=== PATIENT | male | born 1950 | race Caucasian/White ===

== ENCOUNTER → 2018-07-24 | Outpatient (CLI) | payer BC ==
[~2018-07-24] MED LIST: APIX5TAB PO; LISI10TA2 PO; MELO15TA23 PO; OMEP40CA5 PO; SILD50TA PO; TEST200V4 IM
== END | disposition home or self-care (01) ==
LOC: PCVCCLINIC 11:13
PROVIDERS: ATTEND Internal Medicine
DX: I48.1 Persistent atrial fibrillation (principal); R06.09 Other forms of dyspnea; I10 Essential (primary) hypertension; E78.5 Hyperlipidemia, unspecified; N52.1 Erectile dysfunction due to diseases classified elsewhere; F32.0 Major depressive disorder, single episode, mild; K21.9 Gastro-esophageal reflux disease without esophagitis; M19.90 Unspecified osteoarthritis, unspecified site; Z87.891 Personal history of nicotine dependence
CPT/HCPCS: 36415; 80061; 93005; G0463

== ENCOUNTER → 2018-08-07 | Outpatient (CLI) | payer BC ==
[~2018-08-07] MED LIST changes: +REGADENOSON 0.4 MG/5 ML DISP.SYRIN. IV ONE
--- NOTE | 2018-08-08 09:46 | PCVCIMAG ---
APPROVED REPORT Study performed: 08/07/2018 09:40:58 EXAM: Comprehensive 2D, Doppler, and color-flow Echocardiogram Patient Location: Echo lab Status: routine BSA: 2.38 HR: 65 bpmBP: 140/88 mmHg Rhythm: NSR Other Information Study Quality: Adequate Risk Factors: Cardiac Risk Factors: Hyperlipidemia, HTN Indications Atrial Fibrillation Dyspnea on Exertion 2D Dimensions IVSd: 14.06 (7-11mm)LVOT Diam: 21.00 (18-24mm) LVDd: 42.38 mm PWd: 11.99 (7-11mm)Ascending Ao: 29.12 (22-36mm) LVDs: 30.99 (25-40mm) Left Atrium: 41.57 (27-40mm) Aortic Root: 27.96 mm LV Single Plane 4CH: 47.95 % LV Single Plane 2CH: 59.88 % Biplane EF: 56.6 % Volumes Left Atrial Volume (Systole) Single Plane 4CH: 68.87 mLSingle Plane 2CH: 62.78 mL LA ESV Index: 29.00 mL/m2 Aortic Valve AoV Peak Edwardo.: 1.40 m/s AO Peak Gr.: 7.81 mmHgLVOT Max P.33 mmHg LVOT Max V: 0.91 m/s CELIA Vmax: 2.34 cm2 Mitral Valve E/A Ratio: 1.0 MV Decel. Time: 320.93 ms MV E Max Edwardo.: 0.79 m/s MV A Edwardo.: 0.82 m/s IVRT: 58.82 ms TDI E/Lateral E': 13.17E/Medial E': 8.78 Medial E' Edwardo.: 0.09 m/s Lateral E' Edwardo.: 0.06 m/s Pulmonary Valve PV Peak Edwardo.: 1.05 m/sPV Peak Gr.: 4.38 mmHg Pulmonary Vein P Vein S: 0.68 m/sP Vein A: 0.28 m/s P Vein D: 0.41 m/sP Vein A Dur.: 100.3 msec P Vein S/D Ratio: 1.66 Tricuspid Valve TR Peak Edwardo.: 2.83 m/sRAP Estimate: 7.00 mmHg TR Peak Gr.: 32.08 mmHg PA Pressure: 39.00 mmHg Left Ventricle The left ventricle is normal size. There is normal LV segmental wall motion. Mild to moderate concentric left ventricular hypertrophy. Left ventricular systolic function is normal. The left ventricular ejection fraction is within the normal range. LVEF is 50-55%. Grade II - pseudonormal filling dynamics. Right Ventricle Right ventricle is dilated. The right ventricular systolic function is normal. Moderator band is seen in the right ventricle. Atria The left atrium size is normal. The right atrium size is normal. Aortic Valve The aortic valve is normal in structure. No aortic regurgitation is present. There is no aortic valvular stenosis. Mitral Valve There is mitral annular calcification. There is no mitral valve regurgitation noted. No evidence of mitral valve stenosis. Tricuspid Valve The tricuspid valve is normal in structure. Trace tricuspid regurgitation. Pulmonary artery pressure is 39 mmHg. Pulmonic Valve The pulmonary valve is normal in structure. Trace pulmonic regurgitation. Great Vessels The aortic root is normal in size. IVC is normal in size and collapses >50% with inspiration. Pericardium There is no pericardial effusion. <Conclusion> The left ventricle is normal size. LVEF is 50-55%. Right ventricle is dilated. The right ventricular systolic function is normal. Moderator band is seen in the right ventricle. The aortic valve is normal in structure. There is mitral annular calcification. The tricuspid valve is normal in structure. Trace tricuspid regurgitation. Pulmonary artery pressure is 39 mmHg. The pulmonary valve is normal in structure. Trace pulmonic regurgitation. There is no pericardial effusion.
--- NOTE | 2018-08-12 16:18 | PCVCIMAG ---
APPROVED REPORT Imaging Protocol: Rest Tc-99m/Stress Tc-99m 1 day Study performed: 08/07/2018 10:21:01 Indication: Atrial Fibrillation, Dyspnea Patient Location: Out-Patient Stress Nurse: Anitra Og RN, Anai Vargas RN [place] Tech:Eveline Deandre [facility] Ht: 6 ft 3 in Wt: 241 lbs BSA: 2.38 m2 HR: 71 bpm BP: 140/84 mmHg BMI: 30.11 Rhythm: Normal Sinus Rhythm, Incomplete RBBB Medical History Medical History: Hyperlipidemia, HTN Medications: Eliquis, Lisinopril, Prilosec Allergies: Tamsulosin Cardiac Risk Factors: Age Pretest Chest Pain Characteristics: No chest pain Exercise History: Physically active Resting Data Rest SPECT myocardial perfusion imaging was performed in supine position 45 minutes following the intravenous injection of 11.2 mCi of Tc-99m Sestamibi. Time of rest injection: 0940 Date: 08/07/2018 Administration Route: IV Administration Site: Right AC Pharmacologic Stress Pharmacologic stress test was performed by injecting Regadenoson 0.4 mg IV push over 10-15 seconds immediately followed by the intravenous injection of 34.4 mCi of Tc-99m Sestamibi. Time of stress injection: 1100 Date: 08/07/2018 Administration Route: IV Administration Site: Right AC Gated Stress SPECT was performed 45 minutes after stress injection. The images were gated to evaluate regional wall motion and calculate left ventricular ejection fraction. Stress Test Details Stress Test: Pharmacologic stress testing performed using 0.4 mg of regadenoson per 5 mL given IV over 10 seconds. Reason for pharmacologic stress test: uses a cane, Knee issues. HRMax Heart Rate (APMHR): 150 bpm Resting HR: 71 bpmTarget HR (85% APMHR): 127 bpm Max HR Achieved: 99 bpm % of APMHR: 66 Recovery HR: 78 bpm BP Resting BP: 140/84 mmHg Max BP: 152/88 mmHg Recovery BP: 145/85 mmHg ECG Resting ECG: Normal Sinus Rhythm, Incomplete RBBB Stress ECG: Normal Sinus Rhythm, Incomplete RBBB Arrhythmia: PVC's Recovery ECG: Normal Sinus Rhythm, Incomplete RBBB Clinical Reason for Termination: Completed protocol Stress Symptoms: Chest tightness similar to presenting symptoms Exercise duration: 0 min 55 sec Symptoms resolved with caffeine. Stress ECG Conclusion 1. adequate response to iv lexiscan 2. inadequate heart rate for ecg diagnosis Study Data Post stress, the left ventricular ejection was 56%.. SSS: 3 SRS: 0 SDS: 3 TID = 1.12. Perfusion There is a medium area of moderately reduced uptake in the mid and apical segment of the inferolateral wall which is seen on the stress images andminimally improves on the resting images. This area thickens and moves normally and is most consistent with artifact although ischemia cannot be excluded. Wall Motion There is a small area of hypokinesis in the basal segment of the inferior wall which is seen on the stress images as well as the resting images. Nuclear Conclusion ECG Findings: non-diagnostic Clinical Findings: negative for ischemia Nuclear Findings: equivocal Exercise Capacity: not assessed Left Ventricular Function: normal 1. intermediate risk study based on partial reversible area involving the inferolateral wall 2. post stress LVEF 56% with basilar inferior hypokinesis <Conclusion> 1. adequate response to iv lexiscan 2. inadequate heart rate for ecg diagnosis
== END | disposition home or self-care (01) ==
LOC: PCVCIMAG 09:03
PROVIDERS: ATTEND Internal Medicine
DX: I05.8 Other rheumatic mitral valve diseases (principal); I48.91 Unspecified atrial fibrillation; R06.09 Other forms of dyspnea
CPT/HCPCS: 78452; 93017; 93306; A9500; J2785

== ENCOUNTER → 2018-08-28 | Outpatient (CLI) | payer BC ==
[~2018-08-28] MED LIST changes: -REGADENOSON 0.4 MG/5 ML DISP.SYRIN. IV ONE
== END | disposition home or self-care (01) ==
LOC: PCVCCLINIC 10:00
PROVIDERS: ATTEND Internal Medicine
DX: Z01.812 Encounter for preprocedural laboratory examination (principal); R06.09 Other forms of dyspnea; R94.39 Abnormal result of other cardiovascular function study; I48.1 Persistent atrial fibrillation; I10 Essential (primary) hypertension; K21.9 Gastro-esophageal reflux disease without esophagitis; M19.90 Unspecified osteoarthritis, unspecified site; Z87.891 Personal history of nicotine dependence
CPT/HCPCS: 36415; G0463

== ENCOUNTER 2018-09-03 06:32 | Outpatient (CLI) | payer BC ==
[~2018-09-03] VITALS: Ht 190.5 cm; Wt 108.9 kg
[2018-09-03] VITALS (13 sets, daily range): BP systolic 125–165; BP diastolic 75–99
[2018-09-03] MEDS ORDERED: ASPIRIN CHEWABLE 81 MG TABLET. PO ONE (07:30)
[2018-09-03] MEDS ORDERED: LIDOCAINE 1% Multi-Dose 20 ML VIAL. ONE (07:38)
[2018-09-03] MEDS ORDERED: IODIXANOL 320 MG/ML 100 ML VIAL. ONE (07:38)
[2018-09-03] MEDS ORDERED: SILD50TA PO (07:42)
[2018-09-03] MEDS ORDERED: LISI10TA2 PO (07:42)
[2018-09-03] MEDS ORDERED: TEST200V4 IM (07:42)
[2018-09-03] MEDS ORDERED: MELO15TA23 PO (07:42)
[2018-09-03] MEDS ORDERED: OMEP40CA5 PO (07:42)
[2018-09-03] MEDS ORDERED: APIX5TAB PO (07:42)
[2018-09-03] MEDS ORDERED: ASPIRIN CHEWABLE 81 MG TABLET. ONE (08:17)
[2018-09-03] MEDS ORDERED: fentaNYL PF VIAL 250 MCG/5 ML VIAL ONE (08:29)
[2018-09-03] MEDS ORDERED: MIDAZOLAM HCL/PF 5 MG/5 ML VIAL. ONE (08:29)
[2018-09-03] MEDS ORDERED: LIDOCAINE 1% Multi-Dose 20 ML VIAL. INJ ONE (08:45)
[2018-09-03] MEDS ORDERED: MIDAZOLAM HCL/PF 5 MG/5 ML VIAL. IV ONE (08:45)
[2018-09-03] MEDS ORDERED: IODIXANOL 320 MG/ML 100 ML VIAL. IART ONE (08:45)
[2018-09-03] MEDS ORDERED: LISINOPRIL 10 MG TABLET PO ONE (09:30)
--- NOTE | 2018-09-03 14:15 | NUR ---
Discharge Note: OBDULIO HOLLINGSWORTH Discharge instructions and discharge home medications reviewed with Patient and a copy given. All questions have been answered and understanding verbalized. The following instructions and handouts were given: Moderate sedation, groin site care, Cardiac Angiography, cardiac diet and hypertension. Discontinued lines and drains: left forearm, dressing clean dry intact. Patient discharged to home with significant other via wheelchair to private vehichle. Patient tolerated breakfast and lunch without issues.
--- NOTE | 2018-09-04 10:29 | CARD ---
MR#: [id number] Date of Study: 09/03/2018 Ordering Physician: JULIO CESAR BILLY, Referring Physician: JULIO CESAR BILLY, Tech: RT Faisal (R) APPROVED REPORT Technologist: Renee Nunez RT (R) Nurse: Jolene Nixon RN Procedure(s) performed: FLuoro time:2.5 minutes Dose:53 Gycm2 [id number] cc Moderate sedation: 40 minutes Left heart catheterization, selective left and right coronary angiography, measurement of left ventri cular pressures, and Supervision of conscious sedation HISTORY hypertension: New onset atrial fibrillation with abnormal perfusion scan. [facility] Clinical Frailty Scale [facility] Clinical Frailty Scale: Very Fit Heart Failure Heart Failure: No CASE TECHNIQUE The patient was brought electively into the cardiac catheterization lab. A timeout was performed conf irming the patient's name, date of , procedure, and site of procedure. All necessary parties wer e wearing the appropriate personal protective equipment and radiation monitoring devices. After expla ining the risks and benefits of the procedure, informed consent was obtained.(See nursing notes for m edications administered). The right groin was sterilely prepped and draped. The right femoral groin w as infiltrated with 1% Lidocaine subcutaneous anesthesia. During this case, Fluoroscopy and low osmol ar contrast were used for imaging. A 5 Setswana sheath was inserted into the right femoral artery witho ut difficulty. Coronary angiography was performed using coronary diagnostic catheters. The left coron gwen system was accessed and visualized with a Diagnostic catheter. The right coronary system was acce ssed and visualized with a Diagnostic catheter. The left ventricle was accessed and visualized with a Diagnostic catheter. Left ventricular/Aortic Valve gradient assessed on pullback. Hemostasis was obt ained with manual pressure following sheath removal without any complications. The patient tolerated the procedure well and there were no complications associated with the procedure. Coronary Angiography The patient's coronary anatomy is left dominant. The left main coronary artery is a large size vessel with intimal irregularities and without signific ant stenosis. The left anterior descending artery is a medium size vessel with mild-moderate diffused disease. Ther e is a 600% stenosis . The circumflex artery is a large size vessel with mild diffused disease. The first obtuse marginal br anch is a medium size vessel with mild-moderate diffused disease. There is a 55% stenosis in the prox imal segment. The right coronary artery is a medium size vessel nondominant vessel has been on it regions in its pr oximal course. The vessel is less than 1.5 mm in diameter. the stenosis appeared to be at least 75% a nd eccentric. The vessel then at the acute margin bifurcates into 2 small branches of less than 1 mm in diameter Conclusion 1. Coronary disease with moderate left circumflex and right coronary artery lesions and a small nondo minant RCA 2. Normal hemodynamics Recommendations Cardiac Risk Reduction Program Aggressive Medical Therapy Signed by : Julio Cesar Billy, Electronically Approved : 09/04/2018 10:28:41
== END 2018-09-03 14:00 | disposition home or self-care (01) ==
LOC: CCL 06:32
PROVIDERS: ATTEND Internal Medicine
DX: I25.10 Atherosclerotic heart disease of native coronary artery without angina pectoris (principal); I48.1 Persistent atrial fibrillation; I10 Essential (primary) hypertension
CPT/HCPCS: 93458; 99152; 99153; C1769; C1892; J1644; J2250; Q9967

== ENCOUNTER → 2018-09-29 | Outpatient (CLI) | payer BC ==
[2018-09-03 13:30] VITALS: BP 147/82
== END | disposition home or self-care (01) ==
LOC: PCVCCLINIC 10:00
PROVIDERS: ATTEND Internal Medicine
DX: I48.0 Paroxysmal atrial fibrillation (principal); R06.09 Other forms of dyspnea; I47.1 Supraventricular tachycardia; I25.10 Atherosclerotic heart disease of native coronary artery without angina pectoris; R53.83 Other fatigue; K21.9 Gastro-esophageal reflux disease without esophagitis; M19.90 Unspecified osteoarthritis, unspecified site; Z87.891 Personal history of nicotine dependence
CPT/HCPCS: 93005; G0463

== ENCOUNTER → 2020-03-28 | Outpatient (CLI) | payer BC ==
[2018-09-03 13:30] VITALS: BP 147/82
[~2020-03-28] MED LIST changes: +CRESTOR40 MG PO; +DICL100G54 TP; +DILT180C29 PO; +ESCITALOPRAM OX10 MG PO; +OMEP40CA45 PO; -OMEP40CA5 PO; +TAMS0.4C97 PO; +WARF2TAB96 PO
== END ==
LOC: LAB 11:50
PROVIDERS: ATTEND Internal Medicine
DX: Z01.812 Encounter for preprocedural laboratory examination (principal); R07.9 Chest pain, unspecified; Z20.828 Contact with and (suspected) exposure to other viral communicable diseases
CPT/HCPCS: U0003

== ENCOUNTER 2020-03-30 09:46 | Outpatient (CLI) | payer BC ==
[~2020-03-30] VITALS: Ht 190.5 cm; Wt 104.3 kg
[2020-03-30] VITALS (9 sets, daily range): BP systolic 123–158; BP diastolic 66–96
[~2020-03-30 09:46] MED LIST changes: -CRESTOR40 MG PO; -DICL100G54 TP; -DILT180C29 PO; -ESCITALOPRAM OX10 MG PO; +LISI10TA16 PO; -LISI10TA2 PO; -OMEP40CA45 PO; +OMEP40CA7 PO; -TAMS0.4C97 PO; -WARF2TAB96 PO
[2020-03-30 10:18] LABS: HEMATOCRIT 46.4 % (39.0-53.0); HEMOGLOBIN 15.7 g/dL (13.0-17.5); RED BLOOD COUNT 4.67 x10^6/uL (4.30-5.70); RED CELL DISTRIBUTION WIDTH 13.6 % (11.5-14.5); WHITE BLOOD COUNT 7.1 x10^3/uL (4.0-11.0)
[2020-03-30] MEDS ORDERED: TAMS0.4C97 PO (10:19)
[2020-03-30] MEDS ORDERED: ESCITALOPRAM OX10 MG PO (10:19)
[2020-03-30] MEDS ORDERED: DICL100G54 TP (10:19)
[2020-03-30] MEDS ORDERED: DILT180C29 PO (10:19)
[2020-03-30] MEDS ORDERED: WARF2TAB96 PO (10:19)
[2020-03-30] MEDS ORDERED: CRESTOR40 MG PO (10:19)
[2020-03-30 10:29] LABS: PROTHROMBIN TIME PATIENT 16.6 SEC (11.7-14.0)
[2020-03-30] MEDS ORDERED: ASPIRIN CHEWABLE 81 MG TABLET. PO ONE (10:30)
[2020-03-30 10:34] LABS: CALCIUM 8.9 mg/dL (8.5-10.1); GFR 73.7; POTASSIUM 4.1 mmol/L (3.5-5.1)
--- NOTE | 2020-03-30 10:43 | NUR ---
Patient arrived via [employer]. Patient will received sedation during case. States he plans on taking [employer] home. Notifying . Bob w/ patient and friend, Irma, via phone that she will be able to stay with patient tonight after receiving sedation. Not able to provide transportation, though.
[2020-03-30] MEDS ORDERED: IOHEXOL 300 MG/ML 100ML VIAL. ONE (10:44)
[2020-03-30] MEDS ORDERED: LIDOCAINE 1% Multi-Dose 20 ML VIAL. ONE (10:44)
[2020-03-30] MEDS ORDERED: ASPIRIN CHEWABLE 81 MG TABLET. ONE (11:00)
[2020-03-30] MEDS ORDERED: MIDAZOLAM HCL/PF 2 MG/2 ML VIAL. IV ONE (11:00)
[2020-03-30] MEDS ORDERED: LIDOCAINE 1% Multi-Dose 20 ML VIAL. INJ ONE (11:00)
[2020-03-30] MEDS ORDERED: IOHEXOL 300 MG/ML 100ML VIAL. IART ONE (11:00)
[2020-03-30] MEDS ORDERED: IV NORMAL SALINE 1000ML BAG 250 ML IV SCH (12:15)
[2020-03-30] MEDS ORDERED: ACETAMINOPHEN 325 MG TABLET. PO PRN (12:15)
[2020-03-30] MEDS ORDERED: NITROGLYCERIN SUBLINGUAL 0.4 MG BOTTLE OF 25. SL PRN (12:15)
[2020-03-30] MEDS ORDERED: 0.9 % SODIUM CHLORIDE 10 ML DISP.SYRIN. IV PRN (12:15)
--- NOTE | 2020-03-30 12:25 | PDOC4 ---
BRIEF OPERATIVE NOTE Date: Mar 30, 2020 Pre-Op Diagnosis Chest Pain with known CAD and abnormal perfusion scan Post-Op Diagnosis 1. Moderate CAD Procedure Performed Left Heart Catheterization, supervision of conscious sedation Surgeon F>Hayley>MD Mariajose [facility] Get[employer] Fil[employer] Machine Operator none EBL 5cc Anesthesiologist None Anesthesia Type: Conscious Sedation Specimens Obtained none Findings Moderate Coronary Artery Disease involving Non-Dominant RCA and LAD Complications none JULIO CESAR BRIGGS MD Mar 30, 2020 12:25
--- NOTE | 2020-03-30 13:26 | NUR ---
Patient sitting at 30 degrees. No bleeding at this time. Will continue to monitor.
--- NOTE | 2020-03-30 15:18 | NUR ---
Patient able to ambulate on unit, able to dress himself. Ate lunch. No bleeding at groin site. Instructions provided on incision care, bleeding, moderate sedation. Patient verbalized understanding. Took patient to insurance arranged transportation via wheelchair. Confirmed ride w/ company. All belongings taken with patient at time of d/c.
--- NOTE | 2020-04-05 16:07 | CARD ---
MR#: [id number] Date of Study: 03/30/2020 Ordering Physician: JULIO CESAR BILLY, Referring Physician: JULIO CESAR BILLY, Tech: Jeremiah Crowe RT (R) APPROVED REPORT Technologist: Jeremiah Crowe RT (R) Nurse: Hali Newman RN Procedure(s) performed: Left heart catheterization, selective coronary angiography, measurement of le ft ventricular end-diastolic pressure, supervision of conscious sedation Dose: 48.75 Gycm2 Contrast: 52 mL Omnipaque 300 fluoro Time: 2.2 Minutes Sedation Time: 30 Minutes HISTORY : coronary artery disease. INDICATION The indication(s) include : positive stress test. [facility] Clinical Frailty Scale [facility] Clinical Frailty Scale: Well Heart Failure Heart Failure: No CASE TECHNIQUE The patient was brought electively into the cardiac catheterization lab. A timeout was performed conf irming the patient's name, date of , procedure, and site of procedure. All necessary parties wer e wearing the appropriate personal protective equipment and radiation monitoring devices. After expla ining the risks and benefits of the procedure, informed consent was obtained.(See nursing notes for m edications administered). The right groin was sterilely prepped and draped. The right femoral groin w as infiltrated with 1% Lidocaine subcutaneous anesthesia. During this case, Fluoroscopy and low osmol ar contrast were used for imaging. A 4 bulgarian sheath was inserted into the right femoral artery witho ut difficulty. Coronary angiography was performed using coronary diagnostic catheters. The left coron gwen system was accessed and visualized with a Diagnostic catheter. The right coronary system was acce ssed and visualized with a Diagnostic catheter. Left ventricular/Aortic Valve gradient assessed on pu llback. Coronary Angiography The patient's coronary anatomy is left dominant. The left main coronary artery is a large size vessel without significant stenosis. The left anterior descending artery is a medium size vessel with intimal irregularities and without s ignificant stenosis. The circumflex artery is a medium size vessel with intimal irregularities and without significant rose mary nosis. The left posterior descending artery is a small size vessel with intimal irregularities and wi thout significant stenosis. The ramus intermedius artery is a small size vessel With a proximal lesion which is not flow-limiting . There is a 60% stenosis in the proximal segment. The right coronary artery is a medium size vessel with moderate diffused disease. There is a 80% sten osis in the proximal segment. Left Ventriculography There was no gradient across the aortic valve upon pullback. Conclusion 1. Coronary artery disease consisting of a high-grade proximal RCA lesion and a small to medium nond ominant vessel, luminal irregularities of the left coronary system 2. Abnormal hemodynamics elevated low ventricular diastolic pressures Recommendations Cardiac Risk Reduction Program Aggressive Medical Therapy Signed by : Julio Cesar Billy, Electronically Approved : 04/05/2020 16:06:50
== END 2020-03-30 15:00 | disposition home or self-care (01) ==
LOC: CCL 09:46
PROVIDERS: ATTEND Internal Medicine
DX: R94.39 Abnormal result of other cardiovascular function study (principal); I25.10 Atherosclerotic heart disease of native coronary artery without angina pectoris; I48.0 Paroxysmal atrial fibrillation; I10 Essential (primary) hypertension; E78.5 Hyperlipidemia, unspecified; F41.9 Anxiety disorder, unspecified; F32.9 Major depressive disorder, single episode, unspecified; K21.9 Gastro-esophageal reflux disease without esophagitis; B19.20 Unspecified viral hepatitis C without hepatic coma; G47.00 Insomnia, unspecified; G47.33 Obstructive sleep apnea (adult) (pediatric); M19.90 Unspecified osteoarthritis, unspecified site; Z98.890 Other specified postprocedural states; Z79.82 Long term (current) use of aspirin; Z79.01 Long term (current) use of anticoagulants; Z79.899 Other long term (current) drug therapy; Z87.891 Personal history of nicotine dependence
CPT/HCPCS: 36415; 80048; 85027; 85610; 93458; 99152; 99153; C1769; C1892; J1644; J2250; J3490; Q9967